=== PATIENT | male | born 1965 | race Caucasian/White ===

== ENCOUNTER 2019-01-22 09:37 | Emergency (ER) | payer OTHER ==
[~2019-01-22] VITALS: Ht 167.6 cm; Wt 77.1 kg
[~2019-01-22 09:37] MED LIST: AVAPRO300 MG PO; CARAFATE SU1 G/10 ML PO; CIPRO500 MG PO; GLIPIZIDE10 MG; LEVAQUIN750 MG PO; LEVSIN/SL0.125 MG PO; LISINOPRIL40 MG; NORVASC2.5 MG PO; PEPCID40 MG PO; PHENERGAN25 MG PO; PROTONIX40 MG PO; ULTRACET PO; ZOFRAN4 MG PO
[2019-01-22] MEDS ORDERED: FORTAMET500 MG (09:43)
[2019-01-22] MEDS ORDERED: LISINOPRIL2.5 MG (09:44)
[2019-01-22] MEDS ORDERED: ASA81 MG (09:44)
[2019-01-22] MEDS ORDERED: CARDURA XL4 MG (09:46)
[2019-01-22] MEDS ORDERED: AVAPRO300 MG (09:46)
[2019-01-22] MEDS ORDERED: GLIMEPIRIDE4 MG (09:47)
[2019-01-22] MEDS ORDERED: MECLIZINE HCL25 MG PO (16:33)
[2019-01-22] MEDS ORDERED: BUTALB-ACETAMI1 EACH PO (16:33)
== END 2019-01-22 17:01 | disposition home or self-care (01) ==
LOC: ER 09:37
DX: H81.13 Benign paroxysmal vertigo, bilateral (principal); R53.1 Weakness; I10 Essential (primary) hypertension

== ENCOUNTER 2021-10-05 08:31 | Outpatient (CLI) | payer OTHER ==
[~2021-10-05 08:31] MED LIST changes: +ASA81 MG; +AVAPRO300 MG; +BUTALB-ACETAMI1 EACH PO; +CARDURA XL4 MG; +FORTAMET500 MG; +GLIMEPIRIDE4 MG; +LISINOPRIL2.5 MG; +MECLIZINE HCL25 MG PO
== END 2021-10-05 08:33 | disposition home or self-care (01) ==
LOC: SONOGRAMA 08:31
DX: M60.861 Other myositis, right lower leg (principal)